=== PATIENT | male | born 1980 | race Caucasian/White ===

== ENCOUNTER 2017-06-29 08:58 | Emergency (ER) | payer OTHER ==
[2017-06-29 09:29] VITALS: TEMP 97.9; O2SAT 99
[2017-06-29] MEDS ORDERED: Fluorescein 1 mg Ophthalmic Strip OD ONE (10:11)
[2017-06-29] MEDS ORDERED: Tetracaine 0.5% Ophth (OR ONLY) OD ONE (10:11)
[2017-06-29] MEDS ORDERED: Tetracaine 0.5% Ophth (OR ONLY) ONE (10:29)
[2017-06-29] MEDS ORDERED: Fluorescein 1 mg Ophthalmic Strip ONE (10:29)
--- NOTE | 2017-06-29 10:31 | C.PDOC ---
History Of Present Illness 37 year old male presents to the ED with complaints of right eye redness and pain since yesterday after his baby hit him in the eye. Patient notes mild swelling of the upper eyelid as well. He denies rash, fever, visual changes, headache, dizziness. Time Seen by Provider: 06/29/17 09:50 Chief Complaint (Nursing): Eye Problem History Per: Patient History/Exam Limitations: no limitations Current Symptoms Are (Timing): Still Present Injury To Eye?: Yes Severity: Mild Quality: "Pain" Wears Contact Lens?: No Associated Symptoms: Pain, Swelling, Other (redness). denies: Decreased Vision , Itching, Discharge From Eye Past Medical History Reviewed: Historical Data, Nursing Documentation, Vital Signs Vital Signs: Last Vital Signs Temp 97.9 F 06/29/17 09:28 Pulse 78 06/29/17 10:47 Resp 16 06/29/17 10:47 BP 118/65 06/29/17 10:47 Pulse Ox 99 06/29/17 12:54 - Medical History PMH: No Chronic Diseases Family History: States: No Known Family Hx - Social History Hx Alcohol Use: No Hx Substance Use: No - Immunization History Hx Tetanus Toxoid Vaccination: No Hx Influenza Vaccination: No Hx Pneumococcal Vaccination: No Review Of Systems Except As Marked, All Systems Reviewed And Found Negative. Constitutional: Negative for: Fever, Chills Eyes: Positive for: Pain, Redness, Other (swelling of upper eyelid ). Negative for: Vision Change ENT: Negative for: Ear Pain, Nose Discharge Cardiovascular: Negative for: Chest Pain Respiratory: Negative for: Cough, Shortness of Breath Skin: Negative for: Rash Neurological: Negative for: Headache, Dizziness Physical Exam - Physical Exam Appears: Well, Non-toxic, In Acute Distress ( mildly uncomfortable ) Skin: Warm, Dry, No Rash Head: Atraumatic, Normacephalic Eye(s): bilateral: PERRL, EOMI, right: Other (mild scleral injection, mild swelling of upper eyelid. No erythema. Fluorescein stain under Wood's lamp shows corneal abrasion at 3 o'clock, no foreign bodies. ) Oral Mucosa: Moist Cardiovascular: Rhythm Regular Respiratory: Normal Breath Sounds, No Rales, No Rhonchi, No Wheezing Neurological/Psych: Oriented x3 Gait: Steady ED Course And Treatment O2 Sat by Pulse Oximetry: 99 (room air ) Pulse Ox Interpretation: Normal Progress Note: Fluorescein stain test was performed using tetracaine 0.5% opth soln and Lawrence lamp (done by me, patient tolerated well). Patient was given PO Naprosyn and tetanus vaccination IM in ED. Rx given for antibiotic eye drops, and patient instructed to follow up with ophthamologist in 1-2 days. He understands he should return to ED if symptoms worsen. Reevaluation Time: 10:45 Reassessment Condition: Improved Disposition Counseled Patient/Family Regarding: Diagnosis, Need For Followup, Rx Given - Disposition Referrals: Jean Pierre Carrera MD [Staff Provider] - [facility] [Outside] [facility] [Outside] Disposition: HOME/ ROUTINE Disposition Time: 10:45 Condition: STABLE Additional Instructions: FOLLOW UP WITH EYE DOCTOR IN 1-2 DAYS USE MEDICATIONS DIRECTED RETURN TO ER IF SYMPTOMS WORSEN Prescriptions: Naproxen [Naprosyn Tab] 375 mg PO BID PRN #15 tab PRN Reason: pain Polymyxin B Sulf/Trimethoprim [Polymyxin B-Tmp Eye Drops] 2 drop OP Q6 #1 bottle Instructions: Corneal Abrasion (ED) Forms: [employer] ([place] Korean) Print Language: BENGALI - Clinical Impression Clinical Impression: Pain in eye, Corneal abrasion - Scribe Statement The provider has reviewed the documentation as recorded by the Scribchristina Tucker All medical record entries made by the Scribe were at my direction and personally dictated by me. I have reviewed the chart and agree that the record accurately reflects my personal performance of the history, physical exam, medical decision making, and the department course for this patient. I have also personally directed, reviewed, and agree with the discharge instructions and disposition.
[2017-06-29] MEDS ORDERED: Tetanus/Diphtheria Toxoids 0.5 ml Syringe IM ONE ×2 (10:37→10:44)
[2017-06-29] MEDS ORDERED: Naproxen 550 mg Tab PO STA (10:38)
[2017-06-29] MEDS ORDERED: Naproxen 550 mg Tab PO ONE (10:44)
[2017-06-29 10:48] VITALS: BP 118/65; PULSE 78; RESP 16
== END 2017-06-29 10:47 | disposition home or self-care (01) ==
LOC: C.ER 08:58
DX: S05.01XA Injury of conjunctiva and corneal abrasion without foreign body, right eye, initial encounter (principal); W50.0XXA Accidental hit or strike by another person, initial encounter; Y93.89 Activity, other specified; Y92.89 Other specified places as the place of occurrence of the external cause; H57.11 Ocular pain, right eye; Z23 Encounter for immunization

== ENCOUNTER 2018-07-02 05:12 | Emergency (ER) | payer SELFPAY ==
[2018-07-02 05:32] VITALS: RESP 14; TEMP 97.8; O2SAT 98
--- NOTE | 2018-07-02 05:45 | C.PDOC ---
History Of Present Illness 38 year old male patient presents to the ER with c/o left lower leg for 4 days. Patient reports he is unable to stand on his left leg when pain becomes severe. Patient notes this occurred a year ago and now it has bothered him again, he was given antibiotics. Patient states he has new wound to his ankle that he noticed 4 days ago. Denies fever, drainage, swelling. He does not have PMD. Language barrier; chief executive officer used: [employer] Time Seen by Provider: 07/02/18 05:29 Chief Complaint (Nursing): Lower Extremity Problem/Injury History Per: Patient History/Exam Limitations: language barrier (Azeri, used chief executive officer [employer]. [id number]) Onset/Duration Of Symptoms: Days (x5) Current Symptoms Are (Timing): Still Present Past Medical History Reviewed: Historical Data, Nursing Documentation, Vital Signs Vital Signs: Last Vital Signs Temp 97.8 F 07/02/18 05:27 Pulse 73 07/02/18 06:14 Resp 14 07/02/18 06:14 BP 132/67 07/02/18 06:14 Pulse Ox 98 07/02/18 06:14 - Medical History Other PMH: PVD Family History: States: Unknown Family Hx - Social History Hx Alcohol Use: No Hx Substance Use: No - Immunization History Hx Tetanus Toxoid Vaccination: No Hx Influenza Vaccination: No Hx Pneumococcal Vaccination: No Review Of Systems Constitutional: Negative for: Fever Respiratory: Negative for: Shortness of Breath Musculoskeletal: Positive for: Leg Pain (left lower) Skin: Positive for: Other (wound) Neurological: Negative for: Headache Physical Exam - Physical Exam Appears: Well, Non-toxic, No Acute Distress Skin: Warm, Dry, Other (chronic hyperkeratotic 5x4 lesion to medial aspect of distal left leg; superficial 1cm round ulcer to left medial ankle with 3cm surrounding erythema, no discharge or foul odor) Head: Atraumatic, Normacephalic Eye(s): bilateral: Normal Inspection Oral Mucosa: Moist Neck: Normal ROM Chest: Symmetrical Cardiovascular: Rhythm Regular, No Murmur Respiratory: Normal Breath Sounds, No Rales, No Rhonchi, No Wheezing Extremity: Normal ROM, No Calf Tenderness, No Swelling, Other (chronic vascular changes in lower extremities; hyper pigmentation) Pulses: Left Dorsalis Pedis: Normal, Right Dorsalis Pedis: Normal Neurological/Psych: Oriented x3, Normal Speech Gait: Steady ED Course And Treatment O2 Sat by Pulse Oximetry: 98 (RA) Pulse Ox Interpretation: Normal Medical Decision Making Medical Decision Making: Impression: chronic lesions, chronic vascular changes, superficial ulcer on left lower leg. Plans: -- Keflex -- Motrin Reassess: Patient is resting comfortably. Patient has no fever, no clinical signs of dVT. Patient is instructed to see clinic to f/u with vascular doctor in 1-2 days. Disposition Counseled Patient/Family Regarding: Diagnosis, Need For Followup, Rx Given - Disposition Referrals: Estela Abreu MD [Staff Provider] - Disposition: HOME/ ROUTINE Disposition Time: 06:10 Condition: GOOD Additional Instructions: Follow up with the clinic in 2-5 days for further evaluation. Take medications as prescribed. Return to the emergency department at any time if symptoms persist or worsen. You may call sweatband decorating machine operator service for any assistance . Prescriptions: Cephalexin [cephalexin] 500 mg PO Q12 #14 cap Ibuprofen [Motrin] 600 mg PO Q8 #30 tab Instructions: Peripheral Vascular (Arterial) Disease (DC), Pressure Sores (DC) Forms: [employer] ([place]ican) - POA Present On Arrival: None - Clinical Impression Clinical Impression: PVD (peripheral vascular disease), Ulcer of ankle - PA / WARDROBE SUPERVISOR / Resident Statement MD/ has reviewed & agrees with the documentation as recorded. - Scribe Statement The provider has reviewed the documentation as recorded by the Rodger Onofre Do All medical record entries made by the Scribe were at my direction and personally dictated by me. I have reviewed the chart and agree that the record accurately reflects my personal performance of the history, physical exam, medical decision making, and the department course for this patient. I have also personally directed, reviewed, and agree with the discharge instructions and disposition.
[2018-07-02 06:17] VITALS: BP 132/67; PULSE 73
== END 2018-07-02 06:16 | disposition home or self-care (01) ==
LOC: C.ER 05:12
DX: I73.9 Peripheral vascular disease, unspecified (principal); L97.329 Non-pressure chronic ulcer of left ankle with unspecified severity